=== PATIENT | female | born 1995 | race Caucasian/White ===

== ENCOUNTER 2018-12-16 07:45 | Emergency (ER) | payer OTHER ==
[~2018-12-16] VITALS: Ht 160 cm; Wt 92.1 kg
[2018-12-16] MEDS ORDERED: IRON325 PO (07:58)
[2018-12-16] MEDS ORDERED: LOESTRIN1 EAC1 PO (07:58)
[2018-12-16 08:05] LABS: URINE BILIRUBIN NEGATIVE (Negative); URINE BLOOD 1+ (Negative); URINE CLARITY CLEAR; URINE COLOR YELLOW; URINE GLUCOSE-RANDOM NEGATIVE (Negative); URINE KETONES NEGATIVE (Negative); URINE LEUKOCYTES-REFLEX 1+ (Negative); URINE PROTEIN 1+ (Negative); URINE SPECIFIC GRAVITY 1.015 (1.005-1.030)
[2018-12-16 08:09] LABS: URINE NITRITE-REFLEX POSITIVE (Negative)
[2018-12-16 08:13] LABS: ABSOLUTE BASOPHILS 0.1 thou/uL (0.0-0.2); ABSOLUTE LYMPHOCYTES 1.5 thou/uL (0.8-5.3); ABSOLUTE MONOCYTES 1.2 thou/uL (0.0-1.2); ABSOLUTE NEUTROPHILS 12.4 thou/uL (1.6-8.1); BASOPHILS 0.5 %; EOSINOPHILS 0.1 %; HEMOGLOBIN 12.3 gm/dL (12.0-15.0); MCH 27.9 pg (26.0-34.0); MCHC 32.4 g/dL (28.0-37.0); MCV 86.1 fL (80.0-100.0); MPV 8.4 fl. (7.2-11.1); NUCLEATED RBCS 0 /100WBC; PLATELET COUNT* 297 thou/uL (150-400); POLYS 81.4 %; RBC 4.41 mil/uL (4.20-5.00); WBC 15.2 thou/uL (4.0-11.0)
[2018-12-16 08:22] LABS: SQUAMOUS 0-3 Few /LPF (0-3); URINE RBC 3-10 Few /HPF (0-2)
[2018-12-16 08:23] LABS: CASTS None Seen /LPF (None Seen); CRYSTALS None Seen /LPF (None Seen); MUCUS 0-3 Light strn/LPF (None Seen)
[2018-12-16] MEDS ORDERED: ACETAMINOPHEN-1 EAC1 PO (08:42)
[2018-12-16] MEDS ORDERED: AUGMENTIN 500-1 EACH PO (08:42)
[2018-12-16] MEDS ORDERED: IBUPROFEN 800800 MG PO (08:42)
[2018-12-16 08:43] LABS: CALCIUM 9.3 mg/dL (8.5-10.1); CREATININE 0.9 mg/dL (0.6-1.3); POTASSIUM 3.6 mmol/L (3.5-5.1)
[2018-12-16 08:48] LABS: ALBUMIN 3.3 g/dL (3.4-5.0); TOTAL PROTEIN 7.2 g/dL (6.4-8.2)
[2018-12-16 09:11] VITALS: BP 113/69
== END 2018-12-16 09:12 | disposition home or self-care (01) ==
LOC: M.ERS 07:45
PROVIDERS: Personal Emergency Response Attendant
DX: N39.0 Urinary tract infection, site not specified (principal); R11.10 Vomiting, unspecified

== ENCOUNTER 2021-01-30 23:03 | Emergency (ER) | payer OTHER, MEDICAID ==
[~2021-01-30] VITALS: Ht 160 cm; Wt 97.5 kg
[~2021-01-30 23:03] MED LIST: ACETAMINOPHEN-1 EAC1 PO; AUGMENTIN 500-1 EACH PO; IBUPROFEN 800800 MG PO; IRON325 PO; LOESTRIN1 EAC1 PO
[2021-01-31] MEDS ORDERED: MEDROLDOSEPACK PO (00:06)
[2021-01-31] MEDS ORDERED: HYDROCODON-ACE1 EAC8 PO (00:06)
[2021-01-31] MEDS ORDERED: FLEXERIL PO (00:06)
[2021-01-31 00:19] VITALS: BP 132/65
== END 2021-01-31 00:20 | disposition home or self-care (01) ==
LOC: M.ERS 23:03
DX: S33.5XXA Sprain of ligaments of lumbar spine, initial encounter (principal); Z79.899 Other long term (current) drug therapy; X50.1XXA Overexertion from prolonged static or awkward postures, initial encounter; Y93.89 Activity, other specified; Y92.89 Other specified places as the place of occurrence of the external cause; Y99.9 Unspecified external cause status